=== PATIENT | female | born 1995 | race Caucasian/White ===

== ENCOUNTER 2022-10-28 19:57 | Outpatient (REF) | payer MEDICAID, SELFPAY ==
[2022-10-29 05:52] LABS: CT PCR NOT DETECTED (Not Detect.); NG PCR NOT DETECTED (Not Detect.)
[2022-11-01 06:10] LABS: HPV mRNA E6/E7 Not Detected (Not Detected)
== END 2022-10-28 19:58 | disposition home or self-care (01) ==
LOC: HO.HHCLNP 19:57
PROVIDERS: Visit Provider Advanced Practice Midwife
DX: Z12.4 Encounter for screening for malignant neoplasm of cervix (principal); Z11.51 Encounter for screening for human papillomavirus (HPV); R39.15 Urgency of urination
CPT/HCPCS: 0353U; 87086; 87624; 88142

== ENCOUNTER 2023-01-17 11:12 | Outpatient (AMB) | payer MEDICAID, SELFPAY ==
[2023-01-17 11:17] VITALS: BP 120/80; PULSE 69; BMI 32.1
--- NOTE | 2023-01-17 11:17 | MHC.OFFVIS ---
Intake Vital Signs 01/17/23 11:17 Height 5 ft 11 in Weight 230 lb BMI 32.1 BP 120/80 Blood Pressure Location Rt brachial Position Sitting Pulse 69 Intake Visit Reasons: dermatofibroma Lt thigh Intake Note: Patient here for growth on Lt thigh since 2019. Has enlarged in size. Patient squeezed a hair out. Denies bleeding or oozing. C/o tenderness with touch. Professor Of Medicine Required: No Allergies shrimp Allergy (Unknown, Unverified 01/17/23 11:19) SWELLING sweet potato Allergy (Unknown, Unverified 01/17/23 11:19) SWELLING ENVIRONMENTAL Allergy (Unknown, Uncoded 01/17/23 11:19) RASH shellfish Allergy (Unknown, Uncoded 01/17/23 11:19) anaphylaxis Medication List - Last Reconciled 01/17/23 by Emmanuel Das MD albuterol sulfate 90 mcg/actuation 2 inhalations inhalation Q6H PRN etonogestrel (Nexplanon) subdermal fluticasone propion-salmeterol 500-50 mcg/dose (Advair Diskus) 1 inh inhalation BID montelukast (Singulair) 10 mg PO BEDTIME HPI HPI Comments History of Present Illness Details Patient presents with her significant other for evaluation of a left lateral mid thigh mass. She has had this many years time. His increasing size, become more symptomatic. She was to have it excised. She has no such lesions elsewhere. Chart was reviewed patient evaluated. FORMERLY [facility], [facility] Surgical History (Updated 01/17/23 @ 12:00 by Emmanuel Das MD) Dermatofibroma Social History (Updated 01/17/23 @ 11:21 by JA Urias) Alcohol intake: current Alcohol intake frequency: holidays/special occasions only Physical Exam Vital Signs: Last Vital Signs Pulse 69 01/17/23 11:17 BP 120/80 01/17/23 11:17 BMI result Body Mass Index 32.1 Extrem Other: Left mid posterior thigh mass measuring approximately 3 x 2 cm consistent with a dermatofibroma. Office Procedures Excision Details: Risks, benefits, alternatives of excision of left lateral thigh mass reviewed with the patient and included but not limited to bleeding, infection, recurrence, numbness, pain, scarring, wound dehiscence and the patient wishes to proceed. All questions were answered. Consent signed. After appropriate positioning, left lateral thigh was prepped and draped in usual sterile fashion. Using a longitudinal bi- elliptical incision encompassing the mass in question to grossly clear margins, this carried down through skin, subcutaneous tissue, undermined and specimen sent to pathology. Wound was irrigated secured hemostasis. Was closed in the following manner interrupted inverted dermal 3-0 Vicryl sutures followed by running 3-0 nylon suture were placed. Sterile dressing was applied. Patient tolerated procedure well. 14122-udlkb/arms/legs 2.1-3cm Procedure code (CPT) selection complete Office Meds lidocaine 1 %-epinephrine 1:100,000 injection solution Performing Provider: Emmanuel Das MD Performing Location: [facility] Administered by: Emmanuel Das MD on 01/17/23 11:57 Dose Route Admin Location Dispensed Lot Number Expiration Date [facility] State Archivist 15 mL Infiltration 15 mL Assessment & Plan Assessment & Plan (1) Dermatofibroma: Code(s): D23.9 - Other benign neoplasm of skin, unspecified Plan: Patient has been given very specific local instructions including avoiding strenuous activities for next 2 weeks, ice to the wound periodically today and tomorrow, may shower in 2 days, [id number] analgesics and patient will see me as directed or p.r.n. Orders: Orders AMB Excision Today D23.9 - Other benign neoplasm of skin, unspecified Coding Level of Care Code New Pt Level 4 (89787) Diagnoses Dermatofibroma D23.9 CPT Codes Trunk/Arms/Legs - CPT: 98286-vxqlu/arms/legs 2.1-3cm ([id number])
== END 2023-01-17 11:56 | disposition home or self-care (01) ==
PROVIDERS: PCP Internal Medicine; Visit Provider Surgery
DX: D22.72 Melanocytic nevi of left lower limb, including hip (principal)
CPT/HCPCS: 11403; 99204

== ENCOUNTER 2023-01-17 11:12 | Outpatient (REF) | payer MEDICAID, SELFPAY | END 2023-01-17 11:13 | disposition home or self-care (01) | LOC: HO.LNP 11:12 | PROVIDERS: PCP Internal Medicine; Visit Provider Surgery | DX: D23.72 Other benign neoplasm of skin of left lower limb, including hip (principal) | CPT/HCPCS: 11403; 88305 ==

== ENCOUNTER 2023-01-27 09:55 | Outpatient (AMB) | payer MEDICAID, SELFPAY ==
[2023-01-27 10:05] VITALS: BP 134/76; PULSE 75; BMI 31.9
--- NOTE | 2023-01-27 10:05 | MHC.OFFVIS ---
Intake Vital Signs 01/27/23 10:05 Height 5 ft 11 in Weight 229 lb BMI 31.9 BP 134/76 Blood Pressure Location Rt brachial Position Sitting Pulse 75 Intake Visit Reasons: S/p dermatofibroma Lt thigh Intake Note: Patient here s/p exc Lt thigh. Reports incision healing well. Denies bleeding or oozing. Accompanied by: Self / Same As Patient Allergies shrimp Allergy (Unknown, Unverified 01/27/23 10:07) SWELLING sweet potato Allergy (Unknown, Unverified 01/27/23 10:07) SWELLING ENVIRONMENTAL Allergy (Unknown, Uncoded 01/27/23 10:07) RASH shellfish Allergy (Unknown, Uncoded 01/27/23 10:07) anaphylaxis HPI HPI Comments History of Present Illness Details Patient presents for follow-up. She has no wound issues or complaints. Pathology was reviewed. Margin was close but clear. Although likely, possible local recurrence PFSH Surgical History (Updated 01/17/23 @ 12:00 by Emmanuel Das MD) Dermatofibroma Social History (Updated 01/17/23 @ 11:21 by JA Urias) Alcohol intake: current Alcohol intake frequency: holidays/special occasions only Physical Exam Vital Signs: Last Vital Signs Pulse 75 01/27/23 10:05 BP 134/76 01/27/23 10:05 BMI result Body Mass Index 31.9 Back/Spine/Pelvis Other: Left proximal posterior thigh wound clean dry and intact. Sutures uneventfully removed. Dressing applied. Assessment & Plan Assessment & Plan (1) Dermatofibroma: Code(s): D23.9 - Other benign neoplasm of skin, unspecified Plan Patient has been given local wound instructions, and will follow-up p.r.n.. Coding Level of Care Code Global (80461) Diagnoses Dermatofibroma D23.9
== END 2023-01-27 10:08 | disposition home or self-care (01) ==
PROVIDERS: PCP Internal Medicine; Visit Provider Surgery
DX: D23.9 Other benign neoplasm of skin, unspecified (principal)
CPT/HCPCS: 99024

== ENCOUNTER → 2023-01-27 09:55 | Outpatient (BNVA) | payer MEDICAID, SELFPAY | PROVIDERS: PCP Internal Medicine; Visit Provider Surgery ==

== ENCOUNTER 2023-06-20 17:39 | Outpatient (REF) | payer MEDICAID, SELFPAY ==
[2023-06-21 18:59] LABS: C. trachomatis RNA TMA NOT DETECTED (NOT DETECTED); Candida glabrata RNA NOT DETECTED (NOT DETECTED); Candida species RNA NOT DETECTED (NOT DETECTED); N. gonorrhoeae RNA TMA NOT DETECTED (NOT DETECTED); Trichomonas vaginalis RNA NOT DETECTED (NOT DETECTED)
== END 2023-06-20 17:40 | disposition home or self-care (01) ==
LOC: HO.HHCLNP 17:39
PROVIDERS: Visit Provider Student in an Organized Health Care Education/Training Program
DX: N89.8 Other specified noninflammatory disorders of vagina (principal)
CPT/HCPCS: 36415; 81513; 87481; 87491; 87591; 87661

== ENCOUNTER 2023-08-07 11:34 | Outpatient (REF) | payer MEDICAID, SELFPAY ==
[2023-08-07 13:42] LABS: Hematocrit 45.7 % (37.0-47.0); Hemoglobin 15.6 g/dl (12.0-16.0)
[2023-08-08 03:44] LABS: Syphilis Screen Nonreactive (Nonreactive)
[2023-08-08 04:04] LABS: HIV AB/AG Nonreactive (Nonreactive); HIV Num 1 0.05 S/CO (0.00-0.99); ~HepC Num1 0.14 S/CO (0.00-0.79); ~Hepatitis C Antibody Nonreactive (Nonreactive)
== END 2023-08-07 11:35 | disposition home or self-care (01) ==
LOC: HO.HHCL 11:34
PROVIDERS: Visit Provider Advanced Practice Midwife
DX: N93.9 Abnormal uterine and vaginal bleeding, unspecified (principal); Z11.3 Encounter for screening for infections with a predominantly sexual mode of transmission
CPT/HCPCS: 36415; 85014; 85018; 86780; 86803; 87389

== ENCOUNTER 2023-08-08 16:29 | Outpatient (REF) | payer MEDICAID, SELFPAY ==
[2023-08-08 18:05] LABS: CT PCR NOT DETECTED (Not Detect.); NG PCR NOT DETECTED (Not Detect.)
== END 2023-08-08 16:30 | disposition home or self-care (01) ==
LOC: HO.LNP 16:29
PROVIDERS: PCP Surgery; Visit Provider Advanced Practice Midwife
DX: Z11.3 Encounter for screening for infections with a predominantly sexual mode of transmission (principal)
CPT/HCPCS: 0353U

== ENCOUNTER → 2024-10-22 09:30 | Outpatient (BNV) | payer MEDICAID, SELFPAY | PROVIDERS: PCP Family Medicine; Visit Provider Radiology Body Imaging | DX: N63.22 Unspecified lump in the left breast, upper inner quadrant (principal) | CPT/HCPCS: 76642; 77062; 77066 ==

== ENCOUNTER 2024-10-22 10:02 | Outpatient (REF) | payer MEDICAID, SELFPAY ==
--- NOTE | ~2024-10-22 | US_ITS ---
EXAMINATIONS: 1. MM DIAGNOSTIC DIGITAL BREAST TOMOSYNTHESIS, BILATERAL 2. Targeted ultrasound of the left breast CLINICAL INFORMATION: Left breast lump in the upper outer quadrant. COMPARISON: None. This is a baseline study. TECHNIQUE: Digital breast tomosynthesis is performed in both the craniocaudal and mediolateral oblique views along with computer-aided detection (CAD). Synthesized 2D images are generated from the tomosynthesis. Triangular skin marker was placed at the location of the palpable concern in the upper-outer quadrant of the left breast. FINDINGS: BREAST COMPOSITION: There are scattered areas of fibroglandular density (ACR BI-RADS breast composition Category b). RIGHT BREAST: No significant masses, suspicious calcifications or other abnormalities are seen. LEFT BREAST: No significant masses, suspicious calcifications or other abnormalities are seen. No suspicious mammographic findings at the location of the skin marker. Targeted ultrasound of the left breast was performed at the location of the palpable concern. Survey performed throughout the upper outer quadrant did not reveal suspicious sonographic findings. US/US breast LT limited mamm only IMPRESSION: RIGHT BREAST: Negative, no mammographic evidence of malignancy. LEFT BREAST: Negative, no evidence of malignancy. In particular, no suspicious findings to accounts for patient's palpable concern. Clinical follow-up is recommended, independent of imaging findings. ASSESSMENT: BI-RADS 1 - Negative RECOMMENDATION: 1. Patient should be managed based on the clinical impression. 2. Otherwise, routine annual screening mammography. Results were provided to the patient at time of visit by the technologist. This patient's information was entered into a reminder system with a target due date for their next mammogram. Electronically signed by: Tod Mckeon MD 10/22/2024 11:01 AM EDT
--- OUTSIDE RECORDS SUMMARY | 2024-10-22 10:18 | XMS_ITS | Clinical Summary ---
Author Organization [employer] Address [address] [place] [address] Care Team Providers Care Space Technologist Name Role Phone MarthaOdalis Primary Care Provider + [phone] Allergies Active Allergy Reactions Criticality Noted Date Comments Shellfish-Derived Products 3 Medications * This document contains information received from the source organization and may not represent a complete record from that organization. etonogestrel-elut ing 68 mg contraceptive implant Inject 68 mg under the skin. 1 Active Fluticasone-Salme terol (Advair Diskus) 500-50 MCG/ACT aerosol powder Take 1 inhalation twice daily 2 Active montelukast (Singulair) 10 MG tablet TAKE ONE TABLET EVERY EVENING DIRECTED 2 Active tiZANidine (Zanaflex) 2 MG tabletIndications :Lumbar back pain Take 1 tablet (2 mg) by mouth every 8 (eight) hours if needed for muscle spasms for up to 10 days. 30 tablet 3 Active albuterol 108 (90 Base) MCG/ACT inhalerIndication s:Wheezing Inhale 2 puffs every 4 (four) hours if needed for wheezing. 18 g 2 3 Active hydrOXYzine pamoate (Vistaril) 25 MG capsule Take 1 capsule (25 mg) by mouth every 6 (six) hours if needed for anxiety. 60 capsule 2 5 05/10/19 26 Active sertraline (Zoloft) 50 MG tablet Take 1 tablet (50 mg) by mouth Once per day. 30 tablet 2 5 Active Clindamycin Phos, Once-Daily, (Clindagel) 1 % gel Apply 1 Application. topically Once per day. 75 mL 1 Active Active Problems Problem Noted Date Diagnosed Date History of COVID-19 04/09/2024 BMI 36.0-36.9,adult 04/09/2024 Allergic rhinitis 04/09/2024 Trauma and stressor-related disorder 04/09/2024 Mild persistent asthma 08/15/2011 Anxiety 08/12/2011 Major depression, recurrent, chronic 08/12/2011 Assessment & Plan (10/29/2022 9:32 AM EDT): Assessment: Patient with anhedonia, depressed mood, hopelessness, fluctuating appetite, nightmares, sleep disturbance, guilt, decrease in libido, and grief. She denies SI/HI. Presentation in the context of grief and financial instability, Patient requested to be connected to an OP therapist. At this time Yin Rojas meets criteria for Visit Diagnoses: Problem List Items Addressed This Visit Other Depressive disorder Panic disorder without agoraphobia Grief Patient ready to address current needs Yes Strengths include motivation to address mental health PLAN: 1. Follow up with C: Not recommended for follow-up 2. Patient goal is to obtain therapy service 3. Behavioral Recommendations a. Patient will engage with therapist, when service is established b. 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 Date Type Department Care Team Description 09/13/2024 Telephone [facility] [address] [place] [address] Odalis Thomas DO 08/12/2024 Orders Only [facility] [address] [place] [address] Brittni Heart CNM Mass of upper outer quadrant of left breast (Primary Dx) 08/12/[address] [address] Odalis Thomas DO Call Back Request 08/05/2024 10:15 AM EDT Office Visit [address] [phone] Brittni Heart CNM Mass of upper outer quadrant of left breast (Primary Dx); Hidradenitis; Visit for pelvic exam; Checking subdermal contraceptive; Burnout of caregiver 08/05/2024 Travel 08/04/[address] [address] Odalis Thomas DO Chart Prep from Last 3 Months Immunizations Immunization Administration Dates Next Due DTaP 07/25/1998, 6,04/10/1994,02/07,1993 HPV, Quadrivalent 09/15/2009,02/01/2009,10/28/19 07 Hep A, ped/adol, 2 dose 07/02/2012 Hep B, Adolescent or Pediatric 05/22/1995,1994,1993 Hib ([facility]) 05/22/1995, 5,02/07/1994,12/06 IPV 07/25/1997, 5,02/07/1994,12/06 Influenza injectable quadriv alent preservative free 12/24/2018 Influenza, IIV3, injectable 01/23/2007,0 04/16/2006,02/15/2005,02/21 Influenza, Split (incl. woo fied surface antigen) 12/20/2011 MMR 07/25/1998,08/15/1994 Meningococcal MCV4P [id number]-135 10/27/2006 TD (adult), 2 Lf tetanus tox oid, preservative free, adsorbed 04/10/2005 Tdap 07/02/2012 Social History Tobacco Use Types Packs/Day Years Used Date Smoking Tobacco: Never Smokeless Tobacco: Never Tobacco Cessation:Counseling Given: Not Answered Alcohol Use Standard Drinks/Week Comments Not Currently 0 (1 standard drink = 0.6 oz pur e alcohol) Depression Answer Date Recorded Patient Health Questionnaire-9 Score 11 05/10/2024 Patient Health Questionnaire-9 Score 11 05/10/2024 Last PHQ-9: Questionnaire Data Not on file 0 05/10/2024 Housing Stability Answer Date Recorded What is your housing situation today? I have angela hu 04/09/[address] you li ve. Do you have problems with any of the following? None of the above 04/09/2024 Food Insecurity Answer Date Recorded Within the past 12 months, y ou worried that your food would run out before you got money to buy more: Never True 04/09/2024 Within the past 12 months,th e food you bought just didn't last and you didn't have enough money to get more: Never True 12/2024 Transportation Answer Date Recorded In the past 12 months, has l ack of transportation kept you from medical appts, meetings, work or from getting things needed for daily living? No 04/09/2024 Utilities Answer Date Recorded In the past 12 months, has t he electric, gas, oil or water company threatened to shut off services in your home? No 04/09/2024 Depression Answer Date Recorded Patient Health Questionnaire-2 Score 2 05/10/2024 Internet Access Answer Date Recorded Internet Access Q1 Yes 04/09/2024 Internet Access Q2 Not on file 04/09/2024 Comments No Intention Date Recorded No desire to become (finding) 0 08/05/2024 Sex and Gender Information Value Date Recorded Sex Assigned at Female 01/28/2022 10:15 AM EDT Legal Sex Female 10:15 AM EDT Gender Identity Female 01/28/2022 10:15 AM EDT Sexual Orientation Choose not to disclose 2021 10:15 AM EDT Last Filed Vital Signs Vital Sign Reading Time Taken Comments Blood Pressure 127/81 08/05/2024 10:28 AM EDT Pulse 94 08/05/2024 10:28 AM EDT Temperature 36.3 C (97.4 F) 08/05/2024 10:28 AM EDT Respiratory Rate 16 08/05/2024 10:28 AM EDT Oxygen Saturation 99% 08/05/2024 10:28 AM EDT Inhaled Oxygen Concentration - - Weight 117 kg (258 lb) 08/05/2024 10:28 AM EDT Height 180.3 cm (5' 11 ) 08/05/2024 10:28 AM EDT Body Mass Index 35.98 08/05/2024 10:28 AM EDT Plan of Treatment Health Maintenance Due Date Last Done Comments Derm Melanoma Skin Check 01/05/1994 Pneumococcal Vaccine: Pediatrics (0 to 5 Years) and At-Risk Patients (6 to 49) Years (1 of 2 - PCV) 2012 Hepatitis A Vaccines (2 of 2 - 2-dose series) 01/01/2013 07/02/2012 DTaP/Tdap/Td Vaccines (7 - Td or Tdap) 07/02/2022 07/02/2012, 04/10/2005, 07/25/1998, Additional history exists COVID-19 Vaccine ( season) 2023 Depression Monitoring 11/07/2024 05/10/2024, 025 Influenza Vaccine (#1) 2024 9, 12/20/2011, 01/23/2007, Additional history exists SDOH Screening 04/09/2025 04/09/2024 Alcohol/Substance Use Screening 05/10/2025 05/10/2024 Disability Screening 06/23/2025 06/23/2024 Family Planning (PISQ) 08/05/2025 08/05/2024 Tobacco Screening 08/05/2025 08/05/2024 Cervical Cancer Screening 10/29/2027 HPV/Cotest 10/29/2027 10/28/2022, 10/10/2021 Pap Smear 10/29/2027 10/28/2022, 09/28, 10/25/2020 Zoster Vaccines (1 of 2) 07/07/2043 RSV Patients and Patients Aged 60 years or older (1 - 1-dose 75+ series) 2068 HIB Vaccines Completed 05/22/1995, 03/31, 02/07/1994, Additional history exists Hepatitis B Vaccines Completed 05/22/1995, 04/10/1994, 1993 IPV Vaccines Completed 07/25/1997, 03/31, 02/07/1994, Additional history exists Meningococcal Vaccine Aged Out 10/27/2006 No poncho abhi eligible based on patient's age to complete this topic HPV Vaccines Completed 09/15/2009, 11/0 06/2008, 10/27/2006 HIV Screening Completed 08/07/2023, 09/29, 09/29/2019 Hepatitis C Screening Completed 08/07/2023, 020 Meningococcal B Vaccine Aged Out No l onger eligible based on patient's age to complete this topic RSV under 20 months Aged Out No longe r eligible based on patient's age to complete this topic Rotavirus Vaccines Aged Out No longer eligible based on patient's age to complete this topic Procedures Procedure Name Priority Date/Time Associated Diagnosis Comments HEPATITIS C AB W/REFL TO HCV RNA, QN, PCR Routine 08/07/2023 11:35 AM EDT Screening examination for venereal disease HIV 1/2 ANTIGEN/ANTIBODY, FOURTH GENERATION W/RFL Routine 08/07/2023 11:35 AM EDT Screening examination for venereal disease HPV DNA PROBE, AMPLIFIED Routine 10/28/2022 10:12 AM EDT PAP SMEAR Routine 10/28/2022 10:12 AM EDT from Last 3 Months or Most Recently Relevant to Health Maintenance Results * Hepatitis C Antibody with Reflex to HCV, RNA, Quantitative, Real-Time PCR (08/07/2023 11:35 AM EDT) Hepatitis C Antibody Nonreactive Nonreactive [facility] Comment:Antibodies to HCV no t detected; does not exclude early acuteHCV infection. Blood Venous blood specimen / Unknown 08/07/2023 11:35 AM EDT 08/07/2023 1:19 PM EDT us Brittni Heart CNM LAB BLOOD ORDERABLES Amanda kramer Result [facility] [address] [place] [phone] * HIV-1/2 Antigen and Antibodies, Fourth Generation, with Reflexes (08/07/2023 11:35 AM EDT) HIV AB/AG Nonreactive Nonreactive [facility] Comment:HIV-1 p24 Ag and/or HIV-1/HIV-2 Ab not detected.A test result that is nonreactive does not exclude thepossibility of exposure to or infection with HIV-1 and/orHIV-2. Nonreactive results in this assay for individualswith prior exposure to HIV-1 and/or HIV-2 may be due toantigen and antibody levels that are below the limit ofdetection of this assay.The [employer] HIV Ag/Ab Combo assay result andsupplemental assay results should be interpreted inconjunction with the patient's clinical presentation,history and other laboratory results. If the results areinconsistent with clinical evidence, additional testing issuggested to confirm the result. Blood Venous blood specimen / Unknown 08/07/2023 11:35 AM EDT 08/07/2023 1:19 PM EDT Brittni Heart [facility] LAB BLOOD ORDERABLES Amanda l Result [facility] [address] [place] [phone] * HPV DNA probe, amplified (10/28/2022 10:12 AM EDT) Pathologist [facility] HPV mRNA E6/E7 Not Detected Not Detected [facility] Comment:Methodology: Transcr iption-Mediated AmplificationThis assay detects E6/E7 viral messenger RNA (mRNA) from 14high-risk HPV types (16,18,31,33,35,39,45,51,52,56,58,59,66,68).Cervical sources are required for HPV testing.If a vaginal source from a patient who has had atotal hysterectomy with removal of cervix wassubmitted, please contact the testing laboratoryfor alternative testing options.For additional information, please refer tohttp://education.[employer]/faq/RXK328l2(This link if provided for information/educational purposes only.)THIS TEST WAS PERFORMED AT:[facility] [place] [phone] HANSON MD 10/28/2022 10:1 2 AM EDT 10/29/2022 9:15 AM EDT Brittni Heart CNM LAB MICROBIOLOGY - GENERA L ORDERABLES Final Result [facility] [address] [place] [phone] * Pap Smear (10/28/2022 10:12 AM EDT) 10/28/2022 10:1 2 AM EDT 10/29/2022 9:15 AM EDT Narrative [facility] - 11/06/2022 1:40 PM EDT ----- ------- Name: Yin Rojas Age/Sex: 27/F : 1995 Unit#: [id number] Attend Dr: BRITTNI HEART CNM Re10/28/22 Status: DEP REF Location: HO.HHCLNP Disch: ----- ------- SPEC : [id number] RECD: 10/29/22 STATUS: CASTILLO SALAS NUM: [id number] SHAUNNA: 10/28/22-[address]: BRITTNI HEART CNM ENTERED: 10/29/22-1338 SP TYPE: Pap Smr OT DR: ORDERED: Pap Smear Interpretation Satisfactory for evaluation. Moderate inflammation. Blood. Negative for intraepithelial lesion or malignancy. HPV mRNA E6/E7: NOT DETECTED This assay detects E6/E7 viral messenger RNA (mRNA) from 14 high-risk HPV types (16, 18, 31, 33, 35, 39, 45, 51, 52, 56, 58, 59, 66, 68) HPV testing performed by [facility], [place], [place]. See reference laboratory pion of the EMR for entire report. Clinical Information LMP: Amenorrheic with necplanon Previous PAP test:09/2021, WNL Other history: 09/2020, ASCUS Material Received ThinPrep-Vaginal/Cervical ----- ------- Signed (signature on file) HANDY Carpenter (ASCP) 11/06/22 1340 ----- ------- END OF REPORT Brittni Heart CNM LAB CYTOLOGY ORDERABLES F inal Result [facility] [address] [place] [phone] from Last 3 Months or Most Recently Relevant to Health Maintenance [place] [address] [place] [address] STANDARD * Guarantor: Yin Rojas Account Type Relation to Patient Date of Phone Billing Address Personal/Family Self [address] [phone] Care Teams Space Technologist Relationship Specialty Start Date End Date Odalis Thomas DO [address] [place] [phone] PCP - General Family Medicine 04/09/24
== END 2024-10-22 10:03 | disposition home or self-care (01) ==
LOC: HO.MAMMO 10:02
PROVIDERS: PCP Family Medicine; Visit Provider Advanced Practice Midwife
DX: N63.21 Unspecified lump in the left breast, upper outer quadrant (principal)
CPT/HCPCS: 76642; 77062; 77066